=== PATIENT | male | born 1990 | race Caucasian/White ===

== ENCOUNTER 2016-12-13 12:44 | Emergency (ER) | payer SELFPAY ==
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
--- NOTE | 2016-12-13 13:55 | ED ORDER SUMMARY ---
..... Patient: NADJA MOSQUERA OrderSheet [facility] VisitID: [id number] [place] [address] 26y, M Registration Date/Time: 12/13/2016 ORDER SHEET Weight: 86.1 kg (stated) Allergies: Sulfa Antibiotics GENERAL ORDERS: MEDICATION ORDERS: Ibuprofen PO 800 mg (NOW) (13:32 12/13/2016 Will A.R.N.P.) (13:42 Claudia Becker.N.) IV FLUIDS: ORDER SHEET NOTES: [Electronically signed by Jessi RobertsonR.N.P. (17:45 12/13/2016)] [Electronically signed by Rashmi Calderon R.N. (21:18 12/13/2016)] [Electronically locked/signed by Rashmi Calderon R.N. (21:18 12/13/2016)]
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
--- NOTE | 2016-12-13 13:55 | ED ORDER SUMMARY ---
..... Patient: NADJA MOSQUERA OrderSheet [facility] VisitID: [id number] [place] [address] 26y, M Registration Date/Time: 12/13/2016 ORDER SHEET Weight: 86.1 kg (stated) Allergies: Sulfa Antibiotics GENERAL ORDERS: MEDICATION ORDERS: Ibuprofen PO 800 mg (NOW) (13:32 12/13/2016 Will A.R.N.P.) (13:42 Claudia Becker.N.) IV FLUIDS: ORDER SHEET NOTES: [Electronically signed by Jessi RobertsonR.N.P. (17:45 12/13/2016)] [Electronically signed by Rashmi Calderon R.N. (21:18 12/13/2016)] [Electronically locked/signed by Rashmi Calderon R.N. (21:18 12/13/2016)]
--- NOTE | 2016-12-13 21:18 | ED MAR SUMMARY ---
..... Medication Administration Record [facility] [address] [place] [address] Patient: NADJA MOSQUERA Visit ID: [id number] 26y, M Weight: 86.1 kg Height/Length: 78 in BMI: 21.9 ALLERGIES: Sulfa Antibiotics Given 13:42 12/13/2016 Rashmi Calderon R.N. Medication Administered: IBUPROFEN [PO], Dose: 800 mg Tablets PO. Medication Ordered: Ibuprofen PO 800 mg (NOW).
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
--- NOTE | 2016-12-13 21:18 | ED MAR SUMMARY ---
..... Medication Administration Record [facility] [address] [place] [address] Patient: NADJA MOSQUERA Visit ID: [id number] 26y, M Weight: 86.1 kg Height/Length: 78 in BMI: 21.9 ALLERGIES: Sulfa Antibiotics Given 13:42 12/13/2016 Rashmi Calderon R.N. Medication Administered: IBUPROFEN [PO], Dose: 800 mg Tablets PO. Medication Ordered: Ibuprofen PO 800 mg (NOW).
--- NOTE | 2016-12-13 21:18 | ED MED RECONCILIATION SUMMARY ---
Patient: NADJA MOSQUERA Medication Reconciliation Report [facility] VisitID: [id number] [place] [address] 26y, M Registration Date/Time: 12/13/2016 Weight: 86.1 kg Height/Length: 78 in. BMI: 21.9 ALLERGIES: Sulfa Antibiotics The patient's Home Medications are listed below: NONE. The source(s) of the original Home Medication information: Not obtained. The following Medications were given to the patient in the Emergency Department: Ibuprofen [PO] PO 800 mg, administered: 12/13/2016 1:42:00 PM The following Medications were prescribed to the patient: Flexeril 10 mg: Take 1 orally every 8 hours as needed for muscle spasm. Dispense twenty (20). No refills. Substitution is permissible. -- Jessi Robertson, A.R.N.P. Ultram 50 mg tablets: take 1-2 orally every 6 hours as needed for pain. Dispense twenty (20). No refills. Substitution is permissible. -- Jessi Robertson, A.R.N.P.
--- NOTE | 2016-12-13 21:18 | ED MED RECONCILIATION SUMMARY ---
Patient: NADJA MOSQUERA Medication Reconciliation Report [facility] VisitID: [id number] [place] [address] 26y, M Registration Date/Time: 12/13/2016 Weight: 86.1 kg Height/Length: 78 in. BMI: 21.9 ALLERGIES: Sulfa Antibiotics The patient's Home Medications are listed below: NONE. The source(s) of the original Home Medication information: Not obtained. The following Medications were given to the patient in the Emergency Department: Ibuprofen [PO] PO 800 mg, administered: 12/13/2016 1:42:00 PM The following Medications were prescribed to the patient: Flexeril 10 mg: Take 1 orally every 8 hours as needed for muscle spasm. Dispense twenty (20). No refills. Substitution is permissible. -- Jessi Robertson, A.R.N.P. Ultram 50 mg tablets: take 1-2 orally every 6 hours as needed for pain. Dispense twenty (20). No refills. Substitution is permissible. -- Jessi Robertson, A.R.N.P.
== END 2016-12-13 13:55 | disposition home or self-care (01) ==
LOC: ED SRH 12:44
DX: S16.1XXA Strain of muscle, fascia and tendon at neck level, initial encounter (principal); M79.1 Myalgia; V53.5XXA Driver of pick-up truck or van injured in collision with car, pick-up truck or van in traffic accident, initial encounter; Y93.89 Activity, other specified; Y99.9 Unspecified external cause status; Y92.411 Interstate highway as the place of occurrence of the external cause